=== PATIENT | female | born 2005 | race Hispanic/Latino ===

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

== ENCOUNTER 2024-01-10 16:50 | Emergency (ER) | payer BC ==
[2024-01-10] MEDS ORDERED: Ondansetron ODT 4 MG TAB ONE (17:39)
[2024-01-10] MEDS ORDERED: Ketorolac Tromethamine 30 MG (1 mL) VIAL ONE (17:39)
[2024-01-10 18:41] LABS: Bilirubin Neg (Negative); Blood, Urine Negative (Negative); Clarity Clear (Clear); Glucose, Urine (Dipstick) Normal (Negative); Ketone, Urine 15 mg/dL (Negative); Leukocyte Negative (Negative); Nitrite Negative (Negative); Protein, Urine (Dipstick) Negative (Neg-Trace); Urobilinogen Normal mg/dL (Less than 2)
[2024-01-10 18:45] LABS: Pregnancy Test - Urine (BHCG) Negative (Negative); Pregu Control Background? CLEAR/WHITE (CLR/WHITE); Pregu Control Bar Appear? YES (CONTROL BAR)
[2024-01-10 19:02] LABS: Bacteria/HPF 1+ HPF (None Seen); CAUTI Indications for Culture Pelvic or flank pain; RBC/HPF 0-3 HPF (0-3); Squamous Epithelial 0-3 HPF (0-3); WBC/HPF 0-3 HPF (0-3)
[2024-01-10 19:05] LABS: Urine Culture Reflex No No
== END 2024-01-10 19:26 | disposition home or self-care (01) ==
LOC: CSHERS 16:50
DX: B34.9 Viral infection, unspecified (principal); F17.290 Nicotine dependence, other tobacco product, uncomplicated
CPT/HCPCS: 81001; 81025; 87428; 96372; 99284; J1885; Q0162

== ENCOUNTER 2024-10-28 22:26 | Emergency (ER) | payer SELFPAY ==
[2024-10-28] MEDS ORDERED: Dexamethasone 10 MG/ML VIAL ONE (23:25)
[2024-10-28] MEDS ORDERED: Ketorolac Tromethamine 30 MG (1 mL) VIAL ONE (23:25)
== END 2024-10-28 23:40 ==
LOC: CSHERS 22:26
DX: J01.90 Acute sinusitis, unspecified (principal); F17.290 Nicotine dependence, other tobacco product, uncomplicated
CPT/HCPCS: 87400; 87426; 96372; 99283; J1100; J1885